=== PATIENT | male | born 1945 | race Caucasian/White ===

== ENCOUNTER 2018-07-02 21:48 | Emergency (ER) | payer SELFPAY ==
[~2018-07-02] VITALS: Ht 165.1 cm; Wt 90.0 kg
[2018-07-03 00:57] LABS: BASOPHILS % 0.6 % (0.0-2.0); EOSINOPHILS % 2.7 % (0.0-5.0); HEMATOCRIT. 37.3 % (42.0-52.0); HEMOGLOBIN. 12.8 g/dL (14.0-18.0); LYMPHOCYTES % 23.7 % (20.0-50.0); MEAN CORPUSCULAR HEMOGLOBIN 34.6 pg (28.0-32.0); MEAN PLATELET VOLUME 8.4 fl (7.4-10.4); PLATELET 93 x1000/uL (130-400); RED BLOOD CELL COUNT 3.69 mill/uL (4.7-6.1); RED CELL DISTRIBUTION WIDTH 14.6 % (11.6-14.6)
[2018-07-03 01:03] LABS: CHLORIDE 106 mEq/L (98-107)
[2018-07-03 01:05] LABS: INR 1.1; PROTHROMBIN TIME 11.2 sec (9.1-11.1)
[2018-07-03 06:53] VITALS: BP 125/53
== END 2018-07-03 07:01 | disposition home or self-care (01) ==
LOC: ER 22:15
DX: M25.551 Pain in right hip (principal); M25.512 Pain in left shoulder; R51 Headache; L50.9 Urticaria, unspecified; Z98.890 Other specified postprocedural states; W05.0XXA Fall from non-moving wheelchair, initial encounter; Y93.89 Activity, other specified; Y92.89 Other specified places as the place of occurrence of the external cause; Y99.8 Other external cause status
CPT/HCPCS: 36415; 73030; 73522; 99284